=== PATIENT | female | born 1990 | race Caucasian/White ===

== ENCOUNTER → 2017-10-31 15:28 | Outpatient (CLI) | payer MEDICAID | END | disposition home or self-care (01) | LOC: D.LDO 15:28 | DX: O36.5920 Maternal care for other known or suspected poor fetal growth, second trimester, not applicable or unspecified (principal); Z3A.26 26 weeks gestation of pregnancy ==

== ENCOUNTER → 2017-11-03 12:21 | Outpatient (CLI) | payer MEDICAID | END | disposition home or self-care (01) | LOC: D.LDO 12:21 | DX: O36.5920 Maternal care for other known or suspected poor fetal growth, second trimester, not applicable or unspecified (principal); Z3A.26 26 weeks gestation of pregnancy ==

== ENCOUNTER → 2017-11-09 19:38 | Outpatient (CLI) | payer MEDICAID | END | disposition home or self-care (01) | LOC: D.LDO 19:38 | DX: O36.5990 Maternal care for other known or suspected poor fetal growth, unspecified trimester, not applicable or unspecified (principal) ==

== ENCOUNTER → 2017-11-30 10:34 | Outpatient (CLI) | payer MEDICAID ==
[~2017-11-30 10:34] MED LIST: TYLENOL W/CODEI1 TAB PO; [UNRECOGNIZED DRUG - OTHER] PO
[2018-01-16 05:44] VITALS: BMI 23.6
== END | disposition home or self-care (01) ==
LOC: D.LDO 10:34
DX: O36.5930 Maternal care for other known or suspected poor fetal growth, third trimester, not applicable or unspecified (principal); Z3A.30 30 weeks gestation of pregnancy

== ENCOUNTER → 2017-12-05 11:52 | Outpatient (CLI) | payer MEDICAID ==
[2018-01-16 05:44] VITALS: BMI 23.6
== END | disposition home or self-care (01) ==
LOC: D.LDO 11:52
DX: O36.5930 Maternal care for other known or suspected poor fetal growth, third trimester, not applicable or unspecified (principal); Z3A.31 31 weeks gestation of pregnancy

== ENCOUNTER → 2017-12-20 09:58 | Outpatient (CLI) | payer MEDICAID ==
[2018-01-16 05:44] VITALS: BMI 23.6
== END | disposition home or self-care (01) ==
LOC: D.LABREF 09:58
DX: O36.5930 Maternal care for other known or suspected poor fetal growth, third trimester, not applicable or unspecified (principal); Z3A.33 33 weeks gestation of pregnancy

== ENCOUNTER → 2017-12-24 13:04 | Outpatient (CLI) | payer MEDICAID ==
[2017-12-24 14:08] LABS: COLOR YELLOW (YELLOW)
[2017-12-24 14:09] LABS: APPEARANCE CLEAR (CLEAR); BILIRUBIN NEGATIVE (NEGATIVE); GLUCOSE NEGATIVE (NEGATIVE); KETONE MODERATE mg/dL (NEGATIVE); NITRITE NEGATIVE (NEGATIVE); PROTEIN NEGATIVE (NEGATIVE); SPECIFIC GRAVITY 1.005 (1.005-1.020); UROBILINOGEN NORMAL (NORMAL)
[2017-12-24 14:14] LABS: BACTERIA FEW /hpf (NONE SEEN); RED CELLS - URINE 0-5 /hpf (0-5); WHITE CELLS - URINE 0-5 /hpf (0-5)
[2017-12-24 14:15] LABS: MUCUS <1+ /lpf (NONE SEEN)
[2017-12-24 16:20] LABS: BASOPHILS 0.2 % (0-2); EOSINOPHILS 0.6 % (0-7); HEMOGLOBIN 10.6 g/dL (12-16); IMMATURE GRANULOCYTES 0.5 % (0-5); LYMPHOCYTES 26.4 % (15-50); MCH 31.3 pg (26.0-34.0); MCHC 34.2 g/dL (31.0-37.0); MCV 91.4 fL (80.0-100.0); MEAN PLATELET VOLUME 10.5 fL (7.4-10.4); MONOCYTES 11.9 % (2-11); NEUTROPHILS 60.4 % (40-80); PLATELET COUNT 212 10x3/uL (130-400); RBC 3.39 10x6/uL (4.00-5.40); RDW 12.3 % (11.5-14.5); WBC 6.4 10x3/uL (4.8-10.8)
[2017-12-24 16:43] LABS: ALKALINE PHOSPHATASE 80 U/L (46-116); ALT (SGPT) 12 U/L (10-68); BILIRUBIN - TOTAL 0.28 mg/dL (0.2-1.3); CALC OSMOLALITY 267 mosm/kg (275-300); CALCIUM 8.5 mg/dL (8.5-10.1); CARBON DIOXIDE 24.3 mmol/L (21.0-32.0); CHLORIDE - SERUM 105 mmol/L (98-107); CREATININE - SERUM 0.4 mg/dL (0.6-1.3); POTASSIUM - SERUM 4.2 mmol/L (3.5-5.1); PROTEIN - SERUM 6.9 g/dL (6.4-8.2); SODIUM 136 mmol/L (136-145); UREA NITROGEN 8 mg/dL (7-18); eGFR NON AFRICAN AMERICAN > 90 mL/min (90-120)
[2017-12-24 16:47] LABS: GLUCOSE 68 mg/dL (74-106)
[2017-12-24 16:53] LABS: APPEARANCE CLEAR (CLEAR); BILIRUBIN NEGATIVE (NEGATIVE); COLOR YELLOW (YELLOW); GLUCOSE NEGATIVE (NEGATIVE); KETONE MODERATE mg/dL (NEGATIVE); NITRITE NEGATIVE (NEGATIVE); PROTEIN NEGATIVE (NEGATIVE); UROBILINOGEN NORMAL (NORMAL)
[2017-12-24 19:32] LABS: APPEARANCE CLEAR (CLEAR); BILIRUBIN NEGATIVE (NEGATIVE); COLOR YELLOW (YELLOW); GLUCOSE NEGATIVE (NEGATIVE); KETONE NEGATIVE (NEGATIVE); NITRITE NEGATIVE (NEGATIVE); PROTEIN NEGATIVE (NEGATIVE); UROBILINOGEN NORMAL (NORMAL)
[2017-12-24 19:33] LABS: BACTERIA FEW /hpf (NONE SEEN); EPITHELIAL CELLS 0-5 /hpf (0-5); RED CELLS - URINE 0-5 /hpf (0-5); WHITE CELLS - URINE 0-5 /hpf (0-5)
[2018-01-16 05:44] VITALS: BMI 23.6
== END | disposition home or self-care (01) ==
LOC: D.LDO 13:04
PROVIDERS: Obstetrics & Gynecology
DX: O26.893 Other specified pregnancy related conditions, third trimester (principal); Z3A.34 34 weeks gestation of pregnancy; M54.5 Low back pain; R10.30 Lower abdominal pain, unspecified

== ENCOUNTER → 2018-01-04 22:28 | Outpatient (CLI) | payer MEDICAID ==
[2018-01-16 05:44] VITALS: BMI 23.6
== END | disposition home or self-care (01) ==
LOC: D.LDO 22:28
DX: O36.5930 Maternal care for other known or suspected poor fetal growth, third trimester, not applicable or unspecified (principal); Z3A.35 35 weeks gestation of pregnancy

== ENCOUNTER → 2018-01-06 18:19 | Outpatient (CLI) | payer MEDICAID ==
[2018-01-06 18:41] LABS: COLOR YELLOW (YELLOW)
[2018-01-06 18:42] LABS: APPEARANCE SLT CLOUDY (CLEAR); BILIRUBIN NEGATIVE (NEGATIVE); GLUCOSE NEGATIVE (NEGATIVE); KETONE SMALL mg/dL (NEGATIVE); NITRITE NEGATIVE (NEGATIVE); PROTEIN TRACE mg/dL (NEGATIVE); UROBILINOGEN NORMAL (NORMAL)
[2018-01-06 18:44] LABS: BACTERIA MODERATE /hpf (NONE SEEN); EPITHELIAL CELLS 0-5 /hpf (0-5)
[2018-01-06 18:45] LABS: MUCUS <1+ /lpf (NONE SEEN)
[2018-01-16 05:44] VITALS: BMI 23.6
== END | disposition home or self-care (01) ==
LOC: D.LDO 18:19
PROVIDERS: Obstetrics & Gynecology
DX: O26.893 Other specified pregnancy related conditions, third trimester (principal); Z3A.35 35 weeks gestation of pregnancy; M54.5 Low back pain; R10.30 Lower abdominal pain, unspecified; M25.552 Pain in left hip; M25.551 Pain in right hip

== ENCOUNTER → 2018-01-09 15:29 | Outpatient (CLI) | payer MEDICAID ==
[2018-01-16 05:44] VITALS: BMI 23.6
== END | disposition home or self-care (01) ==
LOC: D.LDO 15:29
DX: O36.5930 Maternal care for other known or suspected poor fetal growth, third trimester, not applicable or unspecified (principal); Z3A.36 36 weeks gestation of pregnancy

== ENCOUNTER → 2018-01-12 08:15 | Outpatient (CLI) | payer MEDICAID ==
[2018-01-16 05:44] VITALS: BMI 23.6
== END | disposition home or self-care (01) ==
LOC: D.LDO 08:15
DX: O36.5930 Maternal care for other known or suspected poor fetal growth, third trimester, not applicable or unspecified (principal); Z3A.36 36 weeks gestation of pregnancy

== ENCOUNTER 2018-01-16 05:22 | Inpatient (IN) | payer MEDICAID ==
[~2018-01-16] VITALS: Ht 154.9 cm; Wt 56.8 kg
--- NOTE | ~2018-01-16 | DS ---
PATIENT:ARMIDA SHEARER :89 MEDICAL RECORD: [id number] DISCHARGE SUMMARY ADMISSION DATE: 01/16/18 DISCHARGE DATE: 01/17/18 HOSPITAL COURSE: The patient was admitted on 01/16/2018. A 27-year-old G2, P1 at 37 weeks and 1 day, admitted for induction of labor secondary to IUGR. The patient was noted to be O positive, group B strep negative, and rubella immune. As mentioned, the patient with intrauterine growth restriction with growth estimated to be approximately at the 5 pound range. Plan for induction of labor. PAST MEDICAL HISTORY: Does not report any significant elements. PAST SURGICAL HISTORY: The patient reported surgical history significant for back surgery in 2009. ALLERGIES: The patient reported no allergies. FAMILY HISTORY: The patient reported a family history significant with a parent and sibling with hypertension. SOCIAL HISTORY: The patient reported a social history significant for daily tobacco use and a remote history of marijuana use. PHYSICAL EXAMINATION: VITAL SIGNS: On initial assessment, vital signs found to be stable. The patient was normotensive and afebrile. LUNGS: Clear to auscultation. CARDIOVASCULAR: Regular rate and rhythm. PELVIC: Uterus was appropriately sized for known IUGR and nontender. EXTREMITIES: Lower extremities are free of Homans sign. wellbeing was reassuring with category 1 tracing, 135 baseline rate with moderate variability and accelerations. Hemoglobin was found to be 9.8. ASSESSMENT AND PLAN: 1. Term intrauterine at 37 weeks. 2. Intrauterine growth restriction with estimated weight roughly in the 5-pound range. 3. Smoker. 4. History of marijuana use. Plan for Pitocin induction of labor. Risks and benefits were explained to the patient including risks of complication due to weight. The patient voiced understanding and consent. The patient progressed and had a spontaneous vaginal delivery. The patient with also borderline hemorrhage due to low lying placenta. Delivery note is as on the chart. The patient did well overnight on day #0, tolerating p.o. pain meds, ambulating and voiding freely. On the morning of day #1, the patient continued to do well. Hemoglobin was found to be 7.4, which was appropriate for known blood loss at time of delivery. The patient was transfused 1 unit of packed red blood cells, tolerating general diet and p.o. pain meds. Following transfusion, the patient was feeling well. Vital signs are stable. The patient was discharged home. The patient instructed to follow up in 4 weeks. 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
[~2018-01-16 05:22] MED LIST changes: -TYLENOL W/CODEI1 TAB PO
[2018-01-16] MEDS ORDERED: TYLENOL W/CODEI1 TAB PO (05:33)
[2018-01-16 05:44] VITALS: BP 129/75; Ht 154.9 cm; Wt 56.8 kg
[2018-01-16 06:39] LABS: HEMATOCRIT 28.3 % (36.0-48.0); HEMOGLOBIN 9.8 g/dL (12-16); MCH 30.9 pg (26.0-34.0); MCHC 34.6 g/dL (31.0-37.0); MCV 89.3 fL (80.0-100.0); MEAN PLATELET VOLUME 9.9 fL (7.4-10.4); RBC 3.17 10x6/uL (4.00-5.40); RDW 12.5 % (11.5-14.5); WBC 5.6 10x3/uL (4.8-10.8)
[2018-01-16 07:08] LABS: UDS - AMPHET NEGATIVE QUAL (NEGATIVE); UDS - BARB NEGATIVE QUAL (NEGATIVE); UDS - BENZO NEGATIVE QUAL (NEGATIVE); UDS - COCAINE NEGATIVE QUAL (NEGATIVE); UDS - OPIATE NEGATIVE QUAL (NEGATIVE); UDS - PCP NEGATIVE QUAL (NEGATIVE); UDS - THC POSITIVE QUAL (NEGATIVE)
[2018-01-16 17:54] LABS: BASOPHILS 0.3 % (0-2); EOSINOPHILS 0.4 % (0-7); HEMATOCRIT 29.1 % (36.0-48.0); LYMPHOCYTES 18.7 % (15-50); MCH 30.9 pg (26.0-34.0); MCHC 34.4 g/dL (31.0-37.0); MCV 89.8 fL (80.0-100.0); MEAN PLATELET VOLUME 10.1 fL (7.4-10.4); MONOCYTES 11.1 % (2-11); NEUTROPHILS 68.5 % (40-80); PLATELET COUNT 186 10x3/uL (130-400); RBC 3.24 10x6/uL (4.00-5.40); RDW 12.5 % (11.5-14.5)
[2018-01-16 19:08] VITALS: BP 117/58
[2018-01-16 23:04] VITALS: BP 153/87
[2018-01-17] VITALS (7 sets, daily range): BP systolic 110–129; BP diastolic 69–83
[2018-01-17 07:32] LABS: RAPID PLASMA REAGIN Non Reactive (Non Reactive)
[2018-01-17 07:36] LABS: BASOPHILS 0.1 % (0-2); EOSINOPHILS 0.6 % (0-7); IMMATURE GRANULOCYTES 0.2 % (0-5); LYMPHOCYTES 20.8 % (15-50); MCH 30.7 pg (26.0-34.0); MCHC 34.6 g/dL (31.0-37.0); MCV 88.8 fL (80.0-100.0); MEAN PLATELET VOLUME 9.5 fL (7.4-10.4); NEUTROPHILS 65.3 % (40-80); PLATELET COUNT 193 10x3/uL (130-400); RDW 12.5 % (11.5-14.5); WBC 8.7 10x3/uL (4.8-10.8)
[2018-01-17 07:42] LABS: RBC 2.41 10x6/uL (4.00-5.40)
[2018-01-17 07:43] LABS: HEMATOCRIT 21.4 % (36.0-48.0); HEMOGLOBIN 7.4 g/dL (12-16)
[2018-01-23 14:29] LABS: UDSC - AMPHET Negative ng/mL (Cutoff=1000); UDSC - BARB Negative ng/mL (Cutoff=300); UDSC - BENZO Negative ng/mL (Cutoff=300); UDSC - COC Negative ng/mL (Cutoff=300); UDSC - METH Negative ng/mL (Cutoff=300); UDSC - OPIATES Negative ng/mL (Cutoff=300); UDSC - PCP Negative ng/mL (Cutoff=25); UDSC - PROPOXY Negative ng/mL (Cutoff=300); UDSC - THC Negative (Cutoff=50)
== END 2018-01-17 17:56 | disposition home or self-care (01) | DRG 775 ==
LOC: D.LD 05:22
PROVIDERS: Obstetrics & Gynecology
PROC: 10E0XZZ Delivery of Products of Conception, External Approach (ICD-10-PCS; principal; 2018-01-16)
DX: O36.5930 Maternal care for other known or suspected poor fetal growth, third trimester, not applicable or unspecified (principal); O99.324 Drug use complicating childbirth; Z3A.37 37 weeks gestation of pregnancy; Z37.0 Single live birth; O99.334 Smoking (tobacco) complicating childbirth; F12.90 Cannabis use, unspecified, uncomplicated